=== PATIENT | female | born 1970 | race Caucasian/White ===

== ENCOUNTER 2017-04-10 19:40 | Emergency (ER) | payer OTHER ==
[~2017-04-10 19:40] MED LIST: IBUPROFEN600 MG PO; NORCO 10-325 T1 EACH PO; TYLENOL 500 MG500 MG PO
[2017-04-10 21:02] LABS: HEMOGLOBIN 14.1 gm/dl (12.3-15.3); RED BLOOD COUNT 4.52 M/UL (4.00-5.10); WHITE BLOOD COUNT 9.7 K/UL (4.5-11.0)
[2017-04-10 21:28] LABS: BUN/CREATININE RATIO 20 (0-10)
== END 2017-04-11 01:40 | disposition home or self-care (01) ==
LOC: ER1 19:40
PROVIDERS: Emergency Medicine
DX: R07.9 Chest pain, unspecified (principal); I10 Essential (primary) hypertension; Z88.0 Allergy status to penicillin; Z79.899 Other long term (current) drug therapy
CPT/HCPCS: 36415; 71020; 80053; 82150; 82550; 82553; 83690; 83874; 84484; 85025; 85379; 93005; 99285

== ENCOUNTER → 2020-12-15 | Outpatient (CLI) | payer OTHER ==
[~2020-12-15] MED LIST changes: +CIPRO500 MG PO; +COLACE 100MG C100 MG PO; +DOXYCYCLINE HY100 MG PO; +ESTRADIOL PATCH TD; +FLONASE 0.05% N16 GM; +GABAPENTIN100 MG PO; +HYDROCODON-ACE1 EAC2 PO; +IBUPROFEN800 MG PO; +KEFLEX CAP 500500 MG PO; +PERCOCET 10-321 EACH PO
== END ==
LOC: KOH-I 10:45
DX: R10.9 Unspecified abdominal pain (principal); K56.41 Fecal impaction
CPT/HCPCS: 74018

== ENCOUNTER → 2020-12-16 | Outpatient (CLI) | payer OTHER | LOC: HEART 5 10:56 | DX: R07.9 Chest pain, unspecified (principal); R00.2 Palpitations ==

== ENCOUNTER → 2021-03-12 | Outpatient (CLI) | payer OTHER | LOC: EXRD 10:03 | DX: M53.3 Sacrococcygeal disorders, not elsewhere classified (principal); M43.28 Fusion of spine, sacral and sacrococcygeal region | CPT/HCPCS: 72202 ==

== ENCOUNTER → 2021-04-20 | Outpatient (CLI) | payer OTHER | LOC: KOH-I 08:30 | DX: M45.9 Ankylosing spondylitis of unspecified sites in spine (principal); M53.3 Sacrococcygeal disorders, not elsewhere classified; M47.816 Spondylosis without myelopathy or radiculopathy, lumbar region; M48.061 Spinal stenosis, lumbar region without neurogenic claudication | CPT/HCPCS: 72192 ==

== ENCOUNTER → 2021-09-14 | Outpatient (CLI) | payer OTHER ==
[~2021-09-14] VITALS: Ht 154.9 cm; Wt 54.4 kg
== END ==
LOC: OPSV 13:00
DX: M81.0 Age-related osteoporosis without current pathological fracture (principal)
CPT/HCPCS: 96365; J3489

== ENCOUNTER → 2022-02-26 | Outpatient (CLI) | payer OTHER | LOC: MAMO 02-12 09:30 | DX: Z12.31 Encounter for screening mammogram for malignant neoplasm of breast (principal) | CPT/HCPCS: 77063; 77067 ==

== ENCOUNTER → 2022-03-01 | Outpatient (CLI) | payer OTHER | LOC: EXRD 08:36 | DX: I70.0 Atherosclerosis of aorta (principal); K76.89 Other specified diseases of liver | CPT/HCPCS: 76700 ==